=== PATIENT | male | born 1970 | race Caucasian/White ===

== ENCOUNTER 2019-10-18 09:03 | Emergency (ER) | payer OTHER ==
[~2019-10-18] VITALS: Ht 177.8 cm; Wt 102.1 kg
[2019-10-18 09:04] VITALS: BP 123/84
[2019-10-18] MEDS ORDERED: PERCOCET 5-3251 EACH PO (10:02)
== END 2019-10-18 10:01 | disposition home or self-care (01) ==
LOC: ER 09:03
DX: S46.912A Strain of unspecified muscle, fascia and tendon at shoulder and upper arm level, left arm, initial encounter (principal); Z88.8 Allergy status to other drugs, medicaments and biological substances; X50.1XXA Overexertion from prolonged static or awkward postures, initial encounter; Y93.89 Activity, other specified; Y92.89 Other specified places as the place of occurrence of the external cause; Y99.8 Other external cause status